=== PATIENT | male | born 1985 | race Caucasian/White ===

== ENCOUNTER 2017-06-19 19:45 | Emergency (ER) | payer BC ==
[~2017-06-19] VITALS: Ht 185.4 cm; Wt 95.3 kg
--- NOTE | 2017-06-19 20:10 | NUR ---
Dr. Payan at bedside for MSE.
[2017-06-19] MEDS ORDERED: TDAP DIPH,PERTUSS,TET VAC/PF 0.5 ML DISP.SYRIN IM ONE ×2 (20:15→20:24)
--- NOTE | 2017-06-19 20:20 | NUR ---
Patient ambulated to ER, reports stepped on a bolt, requests a tetanus shot. No other complaints.
--- NOTE | 2017-06-19 20:35 | NUR ---
Patient discharged to home in stable conditon. Written and verbal after care instructions given. Patient verbalizes understanding of instructions. Patient ambulated out of ER with steady gait, no acute signs of distress, VSS, all belongings taken.
[2017-06-19 20:42] VITALS: BP 105/72
== END 2017-06-19 20:35 | disposition home or self-care (01) ==
LOC: ER 19:45
DX: S91.332A Puncture wound without foreign body, left foot, initial encounter (principal); W22.8XXA Striking against or struck by other objects, initial encounter; Y93.89 Activity, other specified; Y92.89 Other specified places as the place of occurrence of the external cause; Y99.8 Other external cause status
CPT/HCPCS: 90715; A4663